=== PATIENT | male | born 1935 | race Caucasian/White ===

== ENCOUNTER 2017-03-13 09:43 | Emergency (ER) | payer MEDICARE, OTHER ==
[~2017-03-13] VITALS: Ht 160 cm; Wt 63.5 kg
[~2017-03-13 09:43] MED LIST: ADAL30TA10 PO; ALFU10TA2 PO; ASPI81TA82 PO; GABA300C3 PO; HYDR200T3 PO; LEFL20TA7 PO; LORT5TAB PO; NEXI40CA PO; PRED1 PO
[2017-03-13 09:53] VITALS: BP 178/80; PULSE 108; RESP 18; TEMP 98.6; O2SAT 93
--- NOTE | 2017-03-13 10:24 | RADRPT ---
EXAM DATE/TIME: 03/13/2017 10:10 [facility] COMPARISON: No previous studies available for comparison. INDICATIONS : Cough, short of breath. MEDICAL HISTORY : Asthma SURGICAL HISTORY : None. ENCOUNTER: Initial ACUITY: 1 month PAIN SCORE: 0/10 LOCATION: Bilateral chest FINDINGS: PA and lateral views of the chest demonstrate the lungs to be symmetrically aerated without evidence of mass, infiltrate or effusion. The cardiomediastinal contours are unremarkable. Osseous structure s are intact. CONCLUSION: 1. No acute cardiopulmonary disease. Viktor Foster MD on March 13, 2017 at 10:22 Board Certified Radiologist. This report was verified electronically.
[2017-03-13] MEDS ORDERED: SODIUM CHLORIDE 0.9% FLUSH 10 ML FLUSH IVF PRN (11:15)
[2017-03-13] MEDS: RESP: ALBUTEROL 2.5 MG/IPRATROPIUM 0.5 MG NEB (SCH) INH ×2 (11:15→11:44)
[2017-03-13] MEDS ORDERED: RESP: LIDOCAINE HCL 4% PF 5 ML NEB NEB ONE (11:15)
--- NOTE | 2017-03-13 11:16 | PD ---
HPI Chief Complaint: Cold / Flu Symptoms Time Seen by Provider: 10:57 Travel History International Travel<30 days: No Contact w/Intl Traveler<30days: No Traveled to known affect area: No History of Present Illness HPI The patient is a 81-year-old male who presents to the emergency department for shortness of breath and cough for one month's duration. The patient notes a dry mostly nonproductive cough this startled 1 month ago is associated with shortness of breath and occasional wheezing. The patient has been seen by 2 previous physicians and was diagnosed with bronchitis. The patient was placed on prednisone and Augmentin, however, his symptoms have persisted. The patient also notes recent travel to [place] to visit family with recent travel back to [place]. He has not followed up with his primary physician. 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 Huff. The patient recently had radiation therapy to the abdomen and spine for his B cell lymphoma, however, he denies any involvement of the pulmonary structures are radiation to the chest. He denies any fever, chills, or sweats. He does complain of chest pain secondary to the persistent cough. He denies any tobacco use. PFSH Past Medical History Arthritis: Yes (+) Heart Rhythm Problems: No Cardiac Catheterization: No Cardiovascular Problems: Yes High Cholesterol: Yes Congestive Heart Failure: No Diabetes: No Diminished Hearing: No GERD: Yes Hypertension: Yes Respiratory: Yes Past Surgical History Coronary Artery Bypass Graft: No Oral Surgery: Yes (IMPACTED TOOTH REMOVED.) Social History Alcohol Use: No Tobacco Use: No Substance Use: No Allergies-Medications (Allergen,Severity, Reaction): Coded Allergies: atorvastatin (Unverified Adverse Reaction, Unknown, liver issues, 02/13/17) Reported Meds & Prescriptions Reported Meds & Active Scripts Active Reported Aspirin EC (Aspirin) 81 Mg Tabdr 81 Mg PO DAILY Proair Hfa 8.5 GM Inh (Albuterol Sulfate) 90 Mcg/Act Aer 2 Puff INH Q4-6H PRN 108 mcg/actuation Alfuzosin ER 24 HR 10 Mg Tab 10 Mg PO DAILY Finasteride 5 Mg Tab 5 Mg PO DAILY Do not crush. Leflunomide 20 Mg Tab 20 Mg PO DAILY Hydrochlorothiazide 25 Mg Tab 25 Mg PO BID Gabapentin 300 Mg Cap 300 Mg PO HS Lisinopril 10 Mg Tab 10 Mg PO DAILY Nexium (Esomeprazole DR) 40 Mg Capdr 40 Mg PO DAILY Zetia (Ezetimibe) 10 Mg Tab 10 Mg PO DAILY Review of Systems Except as stated in HPI: all other systems reviewed are Neg General / Constitutional: No: Fever Cardiovascular: Positive: Chest Pain or Discomfort (secondary to coughing), No : Diaphoresis Respiratory: Positive: Cough, Shortness of Breath, Wheezing, No: Hemoptysis Gastrointestinal: No: Nausea, Vomiting, Abdominal Pain Physical Exam Narrative GENERAL: Awake, alert, pleasant 81-year-old male who appears his stated age and is in no acute respiratory distress. SKIN: Focused skin assessment warm/dry. HEAD: Atraumatic. Normocephalic. EYES: Pupils equal and round. No scleral icterus. No injection or drainage. ENT: No nasal bleeding or discharge. Mucous membranes pink and moist. NECK: Trachea midline. No JVD. CARDIOVASCULAR: Regular, tachycardic with a heart rate of 108. RESPIRATORY: No accessory muscle use. Coarse breath sounds with late expiratory wheeze. GASTROINTESTINAL: Abdomen soft, non-tender, nondistended. No rebound tenderness. MUSCULOSKELETAL: No obvious deformities. No clubbing. No cyanosis. No edema. NEUROLOGICAL: Awake and alert. No obvious cranial nerve deficits. Motor grossly within normal limits. Normal speech. PSYCHIATRIC: Appropriate mood and affect; insight and judgment normal. Data Data Last Documented VS Vital Signs Date Time Temp Pulse Resp B/P (MAP) Pulse Ox O2 Delivery O2 Flow Rate FiO2 03/13/17 11:30 82 16 95 Room Air 03/13/17 09:53 98.6 178/80 (112) Orders Orders Chest, Pa & Lat (03/13/17 09:56) Complete Blood Count With Diff (03/13/17 11:09) Comprehensive Metabolic Panel (03/13/17 11:09) B-Type Natriuretic Peptide (03/13/17 11:09) Magnesium (Mg) (03/13/17 11:09) Ckmb (Isoenzyme) Profile (03/13/17 11:09) Troponin I (03/13/17 11:09) Iv Access Insert/Monitor (03/13/17 11:09) Electrocardiogram (03/13/17 11:09) Ecg Monitoring (03/13/17 11:09) Oximetry (03/13/17 11:09) Oxygen Administration (03/13/17 11:09) Ct Pulmonary Angiogram (03/13/17 11:09) Sodium Chloride 0.9% Flush (Ns Flush) (03/13/17 11:15) Albuterol-Ipratropium Neb (Duoneb Neb) (03/13/17 11:15) Lidocaine Pf 4% Neb (Lidocaine Pf 4% Neb (03/13/17 11:15) Iohexol 350 Inj (Omnipaque 350 Inj) (03/13/17 12:39) Labs Laboratory Tests Test 03/13/17 11:30 White Blood Count 8.6 TH/MM3 Red Blood Count 4.00 MIL/MM3 Hemoglobin 12.6 GM/DL Hematocrit 37.0 % Mean Corpuscular Volume 92.5 FL Mean Corpuscular Hemoglobin 31.4 PG Mean Corpuscular Hemoglobin Concent 34.0 % Red Cell Distribution Width 13.0 % Platelet Count 199 TH/MM3 Mean Platelet Volume 7.5 FL Neutrophils (%) (Auto) 75.4 % Lymphocytes (%) (Auto) 13.5 % Monocytes (%) (Auto) 8.2 % Eosinophils (%) (Auto) 1.2 % Basophils (%) (Auto) 1.7 % Neutrophils # (Auto) 6.5 TH/MM3 Lymphocytes # (Auto) 1.2 TH/MM3 Monocytes # (Auto) 0.7 TH/MM3 Eosinophils # (Auto) 0.1 TH/MM3 Basophils # (Auto) 0.1 TH/MM3 CBC Comment DIFF FINAL Differential Comment Blood Urea Nitrogen 27 MG/DL Creatinine 1.00 MG/DL Random Glucose 86 MG/DL Total Protein 6.7 GM/DL Albumin 3.2 GM/DL Calcium Level 8.8 MG/DL Magnesium Level 1.7 MG/DL Alkaline Phosphatase 84 U/L Aspartate Amino Transf (AST/SGOT) 23 U/L Alanine Aminotransferase (ALT/SGPT) 38 U/L Total Bilirubin 0.5 MG/DL Sodium Level 139 MEQ/L Potassium Level 3.6 MEQ/L Chloride Level 104 MEQ/L Carbon Dioxide Level 28.0 MEQ/L Anion Gap 7 MEQ/L Estimat Glomerular Filtration Rate 72 ML/MIN Total Creatine Kinase 77 U/L Troponin I LESS THAN 0.02 NG/ML B-Type Natriuretic Peptide 7 PG/ML MDM Medical Decision Making Medical Screen Exam Complete: Yes Emergency Medical Condition: Yes Medical Record Reviewed: Yes Interpretation(s) EKG reveals normal sinus rhythm with a rate of 78. RSR prime in V1 with a QRS of 137 ms consistent with a right bundle branch block. Laboratory Tests Test 03/13/17 11:30 White Blood Count 8.6 TH/MM3 Red Blood Count 4.00 MIL/MM3 Hemoglobin 12.6 GM/DL Hematocrit 37.0 % Mean Corpuscular Volume 92.5 FL Mean Corpuscular Hemoglobin 31.4 PG Mean Corpuscular Hemoglobin Concent 34.0 % Red Cell Distribution Width 13.0 % Platelet Count 199 TH/MM3 Mean Platelet Volume 7.5 FL Neutrophils (%) (Auto) 75.4 % Lymphocytes (%) (Auto) 13.5 % Monocytes (%) (Auto) 8.2 % Eosinophils (%) (Auto) 1.2 % Basophils (%) (Auto) 1.7 % Neutrophils # (Auto) 6.5 TH/MM3 Lymphocytes # (Auto) 1.2 TH/MM3 Monocytes # (Auto) 0.7 TH/MM3 Eosinophils # (Auto) 0.1 TH/MM3 Basophils # (Auto) 0.1 TH/MM3 CBC Comment DIFF FINAL Differential Comment Blood Urea Nitrogen 27 MG/DL Creatinine 1.00 MG/DL Random Glucose 86 MG/DL Total Protein 6.7 GM/DL Albumin 3.2 GM/DL Calcium Level 8.8 MG/DL Magnesium Level 1.7 MG/DL Alkaline Phosphatase 84 U/L Aspartate Amino Transf (AST/SGOT) 23 U/L Alanine Aminotransferase (ALT/SGPT) 38 U/L Total Bilirubin 0.5 MG/DL Sodium Level 139 MEQ/L Potassium Level 3.6 MEQ/L Chloride Level 104 MEQ/L Carbon Dioxide Level 28.0 MEQ/L Anion Gap 7 MEQ/L Estimat Glomerular Filtration Rate 72 ML/MIN Total Creatine Kinase 77 U/L Troponin I LESS THAN 0.02 NG/ML B-Type Natriuretic Peptide 7 PG/ML Differential Diagnosis differential diagnosis includes bronchitis, pneumonia, GERD, postnasal drip, pulmonary embolism, congestive heart failure, pleural effusion, lung carcinoma, metastasis. Narrative Course IV was established, labs are drawn and sent, and the patient was placed on cardiac telemetry monitoring and continuous pulse oximetry monitoring. EKG was ordered and interpreted. Chest x-ray was obtained. Chest x-rays unremarkable. The patient's symptoms been ongoing for 1 month and have not improved with Augmentin or prednisone, patient may have viral bronchitis versus congestive heart failure and/or pulmonary embolism. Therefore, CT pulmonary angiogram was ordered since patient's heart rate was greater than 100 and O2 sat on room air was 93%. CT pulmonary angiogram reveals questionable infiltrate versus inflammation and a right upper lobe, the patient is already on antibiotics, Augmentin. He is currently afebrile, most likely this is refractory coughing for bronchitis/pneumonia. The patient will be placed on Phenergan With Codeine , is advised to continue the antibiotics and steroids as previously directed. He will be provided a copy of his labs and CT results at discharge. Diagnosis Primary Impression: Bronchitis Patient Instructions: General Instructions Additional Instructions: Continue Augmentin. Zithromax as directed. Albuterol inhaler as directed. Cough medicine as directed. Please provide the patient a copy of his CT results and lab results at discharge. Med/Other Pt SpecificInfo: Prescription(s) given Scripts Promethazine-Codeine Liq (Promethazine-Codeine Liq) 6.25-10 Mg/5 Ml Syrp 5 ML PO Q6H Y for COUGH AND/OR COLD SYMPTOMS, #240 ML 0 Refills Prov: Devante Prado MD 03/13/17 Albuterol 18 GM Inh (Ventolin Hfa 18 GM Inh) 90 Mcg/Act Aer 2 PUFF INH Q6H Y for SHORTNESS OF BREATH, #1 INHALER 0 Refills Prov: Devante Prado MD 03/13/17 Azithromycin (Zithromax Z-Bob) 250 Mg Dspk 250 MG PO DIRECTED for Infection, #1 DSPK 0 Refills 500 MG (2 tabs) day 1, then 1 tab days 2-5. Prov: Devante Prado MD 03/13/17 Disposition: 01 DISCHARGE HOME Condition: Stable Devante Prado MD Mar 13, 2017 11:15
[2017-03-13 11:30] VITALS: RESP 16; O2SAT 95
[2017-03-13 11:42] LABS: AUTOMATED NEUTROPHIL # 6.5 TH/MM3 (1.8-7.7); BASOPHIL # 0.1 TH/MM3 (0-0.2); BASOPHIL % 1.7 % (0.0-2.0); EOSINOPHIL # 0.1 TH/MM3 (0-0.4); EOSINOPHIL % 1.2 % (0.0-4.0); HEMO FLAGS DIFF FINAL; LYMPH % 13.5 % (9.0-44.0); LYMPHOCYTE # 1.2 TH/MM3 (1.0-4.8); MEAN CELL VOLUME 92.5 FL (80.0-100.0); MEAN CORPUSCULAR HEMOGLOBIN 31.4 PG (27.0-34.0); MONO % 8.2 % (0.0-8.0); NEUT % 75.4 % (16.0-70.0); PLATELET COUNT 199 TH/MM3 (150-450); WHITE BLOOD COUNT 8.6 TH/MM3 (4.0-11.0)
[2017-03-13] MEDS ORDERED: HYDR25TA5 PO (12:00)
[2017-03-13] MEDS ORDERED: LEFL1TAB3 PO (12:00)
[2017-03-13] MEDS ORDERED: ASPI81TA11 PO (12:00)
[2017-03-13] MEDS ORDERED: GABA300C5 PO (12:00)
[2017-03-13] MEDS ORDERED: NEXI40CA PO (12:00)
[2017-03-13] MEDS ORDERED: ZETI10TA5 PO (12:00)
[2017-03-13] MEDS ORDERED: LISI10TA3 PO (12:00)
[2017-03-13] MEDS ORDERED: ALBUAER3 INH (12:00)
[2017-03-13] MEDS ORDERED: ALFU10TA2 PO (12:00)
[2017-03-13] MEDS ORDERED: FINA5TAB2 PO (12:00)
[2017-03-13 12:06] LABS: CHLORIDE 104 MEQ/L (98-107); POTASSIUM 3.6 MEQ/L (3.5-5.1); SODIUM (NA) 139 MEQ/L (136-145)
[2017-03-13 12:11] LABS: ANION GAP 7 MEQ/L (5-15); BLOOD UREA NITROGEN 27 MG/DL (7-18); MAGNESIUM 1.7 MG/DL (1.5-2.5)
[2017-03-13 12:14] LABS: ALT (GPT) 38 U/L (12-78); AST (GOT) 23 U/L (15-37); GLOMERULAR FILTRATION RATE 72 ML/MIN (>89)
[2017-03-13 12:15] LABS: TOTAL BILIRUBIN ADULT 0.5 MG/DL (0.2-1.0)
[2017-03-13 12:17] LABS: ALKALINE PHOSPHATASE 84 U/L (45-117)
[2017-03-13 12:20] VITALS: BP 138/64; PULSE 72; RESP 16; O2SAT 95
[2017-03-13 12:20] LABS: CREATINE KINASE 77 U/L (39-308)
[2017-03-13] MEDS ORDERED: IOHEXOL 350 MG/ML 10 ML VIAL (for RAD DIAG) IVCONTRAST ONE (12:39)
--- NOTE | 2017-03-13 12:49 | RADRPT ---
EXAM DATE/TIME: 03/13/2017 12:32 [facility] COMPARISON: No previous studies available for comparison. INDICATIONS : Short of breath. Evaluate for embolism. IV CONTRAST: 65 cc Omnipaque 350 (iohexol) IV RADIATION DOSE: 9.83 CTDIvol (mGy) MEDICAL HISTORY : Hypertension. Gastroesophageal reflux disease. B cell lymphoma SURGICAL HISTORY : None. ENCOUNTER: Initial ACUITY: 1 day PAIN SCALE: 0/10 LOCATION: chest TECHNIQUE: Volumetric scanning of the chest was performed using a pulmonary embolism protocol MIP images were re constructed. Using automated exposure control and adjustment of the mA and/or kV according to patien t size, radiation dose was kept as low as reasonably achievable to obtain optimal diagnostic quality images. DICOM format image data is available electronically for review and comparison. Follow-up recommendations for detected pulmonary nodules are based at a minimum on nodule size and pa tient risk factors according to Fleischner Society Guidelines. FINDINGS: PULMONARY ARTERIES: No filling defects are seen in the pulmonary arteries through the segmental level. LUNGS: There is no pneumothorax . Mild underlying emphysema is noted. There is reticulonodular opacity in th e posterior right upper lobe along the fissure. There is bronchiectasis in both lower lobes right gre ater than left with reticulonodular opacity in the right lower lobe. No concerning pulmonary nodule i s visualized. PLEURAE: There is no pleural thickening or pleural effusion. MEDIASTINUM: There is good visualization of the great vessels of the middle mediastinum. No evidence of mediastin al or hilar adenopathy/mass. There are coronary artery calcifications. MUSCULOSKELETAL: Within normal limits for patient age. MISCELLANEOUS: The visualized upper abdominal organs demonstrate no acute abnormality. CONCLUSION: 1. No evidence of pulmonary embolism. 2. Small area of reticular nodular infiltrate in the posterior right upper lobe which may be infectio us or inflammatory. 3. Mild bronchiectasis in both lower lobes right greater than left with reticulonodular opacities in the right lung base most characteristic of scarring. 4. Mild underlying emphysema. 5. Coronary artery calcifications. Aaron Nelson MD on March 13, 2017 at 12:42 Board Certified Radiologist. This report was verified electronically.
[2017-03-13] MEDS ORDERED: PROM6.256 PO (13:05)
[2017-03-13] MEDS ORDERED: ZITHTAB PO (13:05)
[2017-03-13] MEDS ORDERED: VENTAER INH (13:05)
[2017-03-13 13:20] VITALS: BP 142/72; PULSE 83; RESP 18; O2SAT 94
--- NOTE | 2017-03-14 21:57 | EKG ---
Date Performed: 03/13/2017 Time Performed: 11:36:32 PTAGE: 81 years EKG: Sinus rhythm RIGHT BUNDLE BRANCH BLOCK ABNORMAL ECG PREVIOUS TRACING : 11/15/2010 17.11 Compared to prior tracing no significant change DOCTOR: Trena Berumen Interpretating Date/Time 03/14/2017 21:56:53
== END 2017-03-13 13:32 | disposition home or self-care (01) ==
LOC: PHED 09:43
DX: J40 Bronchitis, not specified as acute or chronic (principal); Z88.6 Allergy status to analgesic agent; I10 Essential (primary) hypertension
CPT/HCPCS: 71020; 71275; 80053; 82550; 83735; 83880; 84484; 85025; 93005; 94640; 94664; 99285; Q9967

== ENCOUNTER 2017-07-22 11:25 | Emergency (ER) | payer MEDICARE, OTHER ==
[~2017-07-22] VITALS: Ht 160 cm; Wt 64.5 kg
[~2017-07-22 11:25] MED LIST changes: -ADAL30TA10 PO; +ALBUAER3 INH; +ASPI81TA23 PO; -ASPI81TA82 PO; +EZET10 PO; +FINA5TAB2 PO; -GABA300C3 PO; +GABA300C5 PO; -HYDR200T3 PO; +HYDR25TA5 PO; +LEFL1TAB3 PO; -LEFL20TA7 PO; +LISI10TA3 PO; -LORT5TAB PO; -PRED1 PO; +PROM6.256 PO; +VENTAER INH; +ZITHTAB PO
[2017-07-22 11:57] VITALS: BP 140/70; PULSE 92; RESP 16; TEMP 98.1; O2SAT 96
[2017-07-22] MEDS ORDERED: NIFE30TA61 PO (12:15)
[2017-07-22] MEDS ORDERED: FOLI400T PO (12:15)
[2017-07-22] MEDS ORDERED: MORPHINE SULFATE 2 MG/ML INJ IM ONE (12:30)
[2017-07-22] MEDS ORDERED: NORC5TAB PO (12:35)
--- NOTE | 2017-07-22 12:35 | PD ---
HPI . Sciatica Chief Complaint: Back/ Neck Pain or Injury Time Seen by Provider: 12:22 Travel History International Travel<30 days: No Contact w/Intl Traveler<30days: No Traveled to known affect area: No History of Present Illness HPI This patient presents with a chief complaint of sciatica. He reports an ongoing problem with sciatica. He states that he is followed by Dr. Salcedo. He saw Dr. Salcedo 5 days ago. He states that he has had increased pain since his physical done by Dr. Salcedo. He states that there was a lot of manipulation of his back and leg with the examination and that he has had increased pain since then. He states that Dr. Salcedo is planning to refer him to pain management and physical therapy. Neither of these have yet occurred. He rates his pain at 8/ 10. No exacerbating factors. Relieved by laying flat. The patient reports numerous previous studies of prednisone. He states that he finished his last course of prednisone 5 days ago. He is concerned about taking so much prednisone. He states that his daughter is in the medical field and has told him to beware prednisone. PFSH Past Medical History Arthritis: Yes Heart Rhythm Problems: No Cancer: Yes (basal cell lymphoma/radiation) Cardiac Catheterization: No Cardiovascular Problems: Yes (htn on meds) High Cholesterol: Yes Congestive Heart Failure: No Diabetes: No Diminished Hearing: No GERD: Yes Hypertension: Yes Medical other: Yes (bph) Respiratory: Yes Immunizations Current: Yes Tetanus Vaccination: < 5 Years Influenza Vaccination: Yes Past Surgical History Coronary Artery Bypass Graft: No Oral Surgery: Yes (IMPACTED TOOTH REMOVED.) Social History Alcohol Use: No Tobacco Use: No (FORMER) Substance Use: No Allergies-Medications (Allergen,Severity, Reaction): Coded Allergies: atorvastatin (Unverified Adverse Reaction, Unknown, liver issues, 07/22/17) Reported Meds & Prescriptions Reported Meds & Active Scripts Active Ventolin Hfa 18 GM Inh (Albuterol Sulfate) 90 Mcg/Act Aer 2 Puff INH Q6H PRN Reported Nifedipine ER 24 HR (Nifedipine) 30 Mg Tab 30 Mg PO DAILY Folic Acid 0.4 Mg Tab 400 Mcg PO DAILY Aspirin EC (Aspirin) 81 Mg Tabdr 81 Mg PO DAILY Proair Hfa 8.5 GM Inh (Albuterol Sulfate) 90 Mcg/Act Aer 2 Puff INH Q4-6H PRN 108 mcg/actuation Alfuzosin ER 24 HR 10 Mg Tab 10 Mg PO DAILY Finasteride 5 Mg Tab 5 Mg PO DAILY Do not crush. Leflunomide 20 Mg Tab 20 Mg PO DAILY Hydrochlorothiazide 25 Mg Tab 25 Mg PO BID Gabapentin 300 Mg Cap 300 Mg PO HS Lisinopril 10 Mg Tab 10 Mg PO DAILY Nexium (Esomeprazole DR) 40 Mg Capdr 40 Mg PO DAILY Zetia (Ezetimibe) 10 Mg Tab 10 Mg PO DAILY Review of Systems Except as stated in HPI: all other systems reviewed are Neg Neurologic: Positive: Paresthesia (chronic peripheral neuropathy which is unchanged from previous), No: Incontinence Physical Exam Narrative GENERAL: Awake and alert and in no acute distress. SKIN: Warm and dry. HEAD: Normocephalic/atraumatic. EYES: Pupils are equal. Extraocular movements are intact. NECK: Normal range of motion. CARDIOVASCULAR: Regular rate and rhythm. RESPIRATORY: Nonlabored respirations. MUSCULOSKELETAL: Atraumatic. NEUROLOGICAL: Nonfocal. PSYCHIATRIC: Appropriate mood and affect. Data Data Last Documented VS Vital Signs Date Time Temp Pulse Resp B/P (MAP) Pulse Ox O2 Delivery O2 Flow Rate FiO2 07/22/17 11:57 98.1 92 16 140/70 (93) 96 Orders Orders Morphine Inj (Morphine Inj) (07/22/17 12:30) [facility] Medical Decision Making Medical Screen Exam Complete: Yes Emergency Medical Condition: Yes Differential Diagnosis Differential diagnosis includes but is not limited to peripheral neuropathy, epidural abscess, cauda equina syndrome Narrative Course This patient presents with a known history of sciatica involving his left lower extremity. He presents to us today for exacerbation of his pain which occurred after physical examination. I have ordered a shot of morphine. Diagnosis Primary Impression: Sciatica Qualified Codes: M54.32 - Sciatica, left side Patient Instructions: General Instructions, Narcotic given in the ED, Sciatica (DC) Med/Other Pt SpecificInfo: Prescription(s) given Scripts Hydrocodone-Acetaminophen ([place]) 5 Mg-325 Mg Tab 1 TAB PO Q4H Y for PAIN, #12 TAB 0 Refills Prov: Yesenia Welch MD 07/22/17 Disposition: 01 DISCHARGE HOME Condition: Stable Yesenia Welch MD Jul 22, 2017 12:35
== END 2017-07-22 13:51 | disposition home or self-care (01) ==
LOC: PHEFT 11:25
DX: M54.32 Sciatica, left side (principal); I10 Essential (primary) hypertension; M19.90 Unspecified osteoarthritis, unspecified site; N40.0 Benign prostatic hyperplasia without lower urinary tract symptoms
CPT/HCPCS: 96372; 99284; J2270